=== PATIENT | female | born 1990 | race Caucasian/White ===

== ENCOUNTER 2021-02-21 02:07 | Inpatient (IN) | payer OTHER, SELFPAY ==
[2021-02-21] VITALS (99 sets, daily range): BP systolic 36–141; BP diastolic 19–94; PULSE 51–172; RESP 16–20; TEMP 36.6–37.1; O2SAT 95–99; BMI 49.0
[2021-02-21 03:09] LABS: Basophils Percent Auto 0.3 % (0.2-1.2); Eosinophils Absolute Auto 0.1 K/mm3 (0-0.3); Eosinophils Percent Auto 0.9 % (0-4.4); Hematocrit 34.5 % (37.0-47.0); Immature Granulocyte Absolute 0.06 K/mm3 (0.00-0.031); Immature Granulocyte Percent A 0.5 % (0-0.5); Lymphocytes Absolute Auto 2.62 K/mm3 (0.9-3.2); Lymphocytes Percent Auto 21.5 % (18.3-44.2); Mean Corpuscular HGB Conc 31.9 g/dl (32-36); Mean Corpuscular Hemoglobin 27.5 pg (26-34); Mean Corpuscular Volume 86.3 fl (80-100); Mean Platelet Volume 11.7 fl (7.4-10.4); Monocytes Absolute Auto 0.8 K/mm3 (0.1-0.6); Monocytes Percent Auto 6.9 % (2.6-8.5); Neutrophils Absolute Auto 8.5 K/mm3 (1.3-6.7); Neutrophils Percent Auto 69.9 % (45.5-73.1); Platelet Count Result 254 k/mm3 (150-375); Red Cell Distribution Width 15.2 % (11.5-14.5); White Blood Count 12.2 K/mm3 (4.5-10.0)
--- NOTE | 2021-02-21 03:13 | LDADM ---
Addendum entered by Sherri Ortega RN 02/21/21 04:27: This charting done by Sherri Ortega RN- 02/21/2021 [id number] Original Note: This patient, Irish Gates, was admitted to Labor/Delivery/Recovery 107 on 02/21/21 at 02:07. Plans for labor, pain management and were discussed with patient. Patient/family oriented to hospital policies and general routines including ID bracelet, bed and alarms, visiting hours, pain management, procedures, bathroom and other care routines, personal items, smoking policy, room service/diet and guest tray routines, infant security routines, and visiting hours. Patient/Family are encouraged to report perceived risks to care and to ask questions if they do not understand what they are told or what they should do. See OBIX for further documentation.
[2021-02-21] MEDS: LACTATED RINGERS 1,000 ML 125 ML IV CONT ×2 (03:54→04:53)
--- NOTE | 2021-02-21 04:23 | WPDANESEPP ---
Anes - Eval Pre Procedure Procedure: Labor epidural Date/Time: 02/21/21 04:23 Surgeon: lianet Preop Diagnosis: abd pain with contractions Pre Op Diagnosis: SROM, Contractions Patient Data Age: 30 Gender: F Height: 5 ft 3 in Weight: 125.5 kg Last Vital Signs Pulse 68 02/21/21 04:15 BP 92/56 L 02/21/21 04:15 Allergies Allergy/AdvReac Type Severity Reaction Status Date / Time No Known Allergies Allergy Verified 02/21/21 03:43 Home Medications Medication Instructions Recorded Confirmed Type buspirone 15 mg PO TID 02/21/21 02/21/21 History citalopram 20 mg PO ONCE 02/21/21 02/21/21 History Laboratory Tests 02/21/21 02/21/21 02/21/21 03:01 03:01 03:01 WBC 12.2 K/mm3 H K/mm3 (4.5-10.0) RBC 4.00 M/mm3 L M/mm3 (4.2-5.4) Hgb 11.0 g/dL L g/dL (12.0-15.0) Hct 34.5 % L % (37.0-47.0) MCV 86.3 fl fl (80-100) MCH 27.5 pg pg (26-34) MCHC 31.9 g/dl L g/dl (32-36) RDW 15.2 % H % (11.5-14.5) Plt Count 254 k/mm3 k/mm3 (150-375) MPV 11.7 fl H fl (7.4-10.4) Immature Gran % (Auto) 0.5 % % (0-0.5) Neut % (Auto) 69.9 % % (45.5-73.1) Lymph % (Auto) 21.5 % % (18.3-44.2) [place] % (Auto) 6.9 % % (2.6-8.5) Eos % (Auto) 0.9 % % (0-4.4) Baso % (Auto) 0.3 % % (0.2-1.2) Lymph # (Auto) 2.62 K/mm3 K/mm3 (0.9-3.2) [place] # (Auto) 0.8 K/mm3 H K/mm3 (0.1-0.6) Eos # (Auto) 0.1 K/mm3 K/mm3 (0-0.3) Baso # (Auto) 0.0 K/mm3 K/mm3 (0.0-0.1) Abs Immat Gran (auto) 0.06 K/mm3 H K/mm3 (0.00-0.031) Absolute Neuts (auto) 8.5 K/mm3 H K/mm3 (1.3-6.7) Absolute Nucleated RBC 0.0 K/mm3 K/mm3 (0.0-0.012) Nucleated RBC % 0.0 % % (0.0-0.2) RPR Pending Blood Type O Positive Antibody Screen Negative Patient hx anesthesia problems: none Family hx anesthesia problems: none PMFSH Past Medical History Medical History Hx of mixed drug abuse Morbid obesity and not yet delivered Smoker Family History Family History Father Diabetes mellitus Alcohol abuse Mother Diabetes mellitus Social History Social History Smoking packs per day: 0.5 Smoking cigarettes per day: 10.0 Years smoked: 16 Smoking pack-years: 8.00 Smoking status: Current every day smoker Tobacco type: cigarettes Second hand tobacco smoke exposure: Yes Substance use: former Other substance usage details: Heroin last use 2016 Gender identity (if verbalized by the patient): Female Sexual Orientation (if Verbalized by the Patient): Straight or Heterosexual Spiritual care concerns: No Exam Day of Procedure 02/21/21 04:23 Patient weight: super morbidly obese Airway: Mallampati scale class II Neurological: alert and oriented
--- NOTE | 2021-02-21 04:28 | PC.NURSE ---
All admission charting done by Sherri Ortega RN.
--- NOTE | 2021-02-21 07:14 | PC.NURSE ---
All entries made under Missael PATTERSON were actually made by Danny PATTERSON.
[2021-02-21] MEDS: OXYTOCIN 30 UNITS/NS 500 ML 30 UNITS/500 ML BAG IV CONT (07:46)
[2021-02-21 07:48] LABS: Barbiturate Screen Urine Negative (Negative); Benzodiazepines Screen Urine Negative (Negative)
[2021-02-21 07:58] LABS: Cannabinoid Screen Urine Negative (Negative); Cocaine Screen Urine Negative (Negative); Methadone Screen Urine Negative (Negative); Opiate Screen Urine Negative (Negative); Phencyclidine Screen Urine Negative (Negative)
[2021-02-21] MEDS: ONDANSETRON INJ 4 MG/2 ML VIAL IV PUSH (11:39)
--- NOTE | 2021-02-21 12:01 | PM.OBPRVD ---
OB - Delivery Note Procedure Procedure: Patient pushed for a spontaneous vaginal delivery. The fetus was delivered atraumatically and placed on the maternal abdomen. The cord was clamped and cut after 1 minute of life. The cord was double clamped and cut and a segment of cord was collected for cord gases. Cord blood was collected for blood type and Coomb's testing. The placenta delivered spontaneously and was noted to be intact. The perineum was inspected and there were no lacerations noted. There was a small right labial laceration that was hemostatic. The uterus was firm and good hemostasis was noted. The patient and fetus were stable in the delivery room. Intrapartal events: None Induction method: none Delivery augmentation: pitocin Delivery monitor: external FHT Route of delivery: Episiotomy description: None Laceration Description: Labial (right) Specimen: No Quantitative Blood Loss (ml): 250 Anesthesia type: Epidural Disposition: floor () Complications: No immediate complications Baby Date of : 02/[birth year] Time of : 11:55 Weeks of gestation at delivery: 37 gender: Female Weight (pounds): 6 Weight (ounces): 8 presentation: vertex position: Right Occiput Anterior Placenta delivery description: Spontaneous cord vessel description: 3 Vessels score one minute: 7 score five minutes: 9
--- NOTE | 2021-02-21 12:03 | PM.IMHP ---
H&P: HPI History of Present Illness Date/Time: 02/21/21 12:03 30 yo at 37w6d who presents after SROM in the middle of the night. She reports feeling regular contractions. She endorses good movement and denies any vaginal bleeding. Her was uncomplicated thus far. Chief Complaint: spontaneous rupture of membranes Review of Systems Cardiovascular: Cardiovascular: Denies chest pain, Denies leg edema, Denies palpitations, Denies dyspnea and Denies dyspnea on exertion Respiratory: Respiratory: Denies cough, Denies dyspnea and Denies dyspnea on exertion Gastrointestinal: Gastrointestinal: Denies abdominal pain, Denies constipation, Denies diarrhea, Denies nausea and Denies vomiting Genitourinary: Genitourinary: Denies hematuria, Denies urinary frequency, Denies dysuria, Denies pelvic pain, Denies urinary incontinence and Denies vaginal discharge Neurologic: Reports system reviewed and no additional complaints, except as documented Psychiatric: Psychiatric: Reports no additional psychiatric complaints Endocrine: Endocrine: Denies palpitations PMFSH Past Medical History Medical History Hx of mixed drug abuse Morbid obesity and not yet delivered Smoker Family History Family History Father Diabetes mellitus Alcohol abuse Mother Diabetes mellitus Social History Social History Smoking packs per day: 0.5 Smoking cigarettes per day: 10.0 Years smoked: 16 Smoking pack-years: 8.00 Smoking status: Current every day smoker Tobacco type: cigarettes Second hand tobacco smoke exposure: Yes Substance use: former Other substance usage details: Heroin last use 2016 Gender identity (if verbalized by the patient): Female Sexual Orientation (if Verbalized by the Patient): Straight or Heterosexual Spiritual care concerns: No Meds Home Medications and Allergies Home Medications Medication Instructions Recorded Confirmed Type buspirone 15 mg PO TID 02/21/21 02/21/21 History citalopram 20 mg PO ONCE 02/21/21 02/21/21 History Allergies Allergy/AdvReac Type Severity Reaction Status Date / Time No Known Allergies Allergy Verified 02/21/21 03:43 Vital Signs Vital Signs - 24 hr 02/21/21 03:00 02/21/21 03:15 02/21/21 03:30 Temperature Pulse Rate 65 63 72 Respiratory Rate Blood Pressure 98/50 L 110/65 96/69 L Pulse Oximetry 02/21/21 03:45 02/21/21 04:00 02/21/21 04:15 Temperature Pulse Rate 62 63 68 Respiratory Rate Blood Pressure 103/64 95/60 L 92/56 L Pulse Oximetry 02/21/21 04:24 02/21/21 04:29 02/21/21 04:30 Temperature Pulse Rate 76 Respiratory Rate Blood Pressure 82/70 L Pulse Oximetry 96 98 02/21/21 04:32 02/21/21 04:34 02/21/21 04:37 Temperature Pulse Rate 74 116 H Respiratory Rate Blood Pressure 141/88 H 126/74 Pulse Oximetry 98 02/21/21 04:39 02/21/21 04:44 02/21/21 04:45 Temperature Pulse Rate 78 76 Respiratory Rate Blood Pressure 116/70 131/79 Pulse Oximetry 97 99 02/21/21 04:46 02/21/21 04:48 02/21/21 04:49 Temperature Pulse Rate 66 58 L Respiratory Rate Blood Pressure 119/78 115/83 Pulse Oximetry 97 02/21/21 04:51 02/21/21 04:54 02/21/21 04:55 Temperature Pulse Rate 70 76 Respiratory Rate Blood Pressure 121/78 133/77 Pulse Oximetry 99 02/21/21 04:59 02/21/21 05:00 02/21/21 05:04 Temperature Pulse Rate 73 Respiratory Rate Blood Pressure 129/71 Pulse Oximetry 98 99 02/21/21 05:05 02/21/21 05:08 02/21/21 05:09 Temperature 36.8 C Pulse Rate 69 Respiratory Rate 20 Blood Pressure 126/72 Pulse Oximetry 98 02/21/21 05:10 02/21/21 05:14 02/21/21 05:15 Temperature Pulse Rate 61 54 L Respiratory Rate Blood Pressure 129/80 124/77 Pulse Oximetry 96 02/21/21 05:19 02/21/21 05:20 0
[2021-02-21] MEDS: OXYTOCIN 30 UNITS/NS 500 ML 30 UNITS/500 ML BAG 125 UNITS IV CONT (12:26)
[2021-02-21] MEDS: IBUPROFEN 600 MG TABLET PO ×2 (12:41→23:12)
[2021-02-21 13:55] LABS: Rapid Plasma Reagin Non-Reactive (NonReactive)
[2021-02-21] MEDS: WITCH HAZEL 40 PADS 1 PAD TOPICAL (14:39)
[2021-02-21] MEDS: BENZOCAINE 20% AER SPR (*SP) 56 GM CAN 1 SPRAY TOPICAL (14:39)
[2021-02-21] MEDS: ACETAMINOPHEN 325 MG TABLET 650 MG PO (20:26)
[2021-02-22] VITALS: BP 115/64; PULSE 79; RESP 16; TEMP 36.6; O2SAT 100
[2021-02-22 04:00] VITALS: BP 105/60; PULSE 72; RESP 16; TEMP 36.8; O2SAT 98
[2021-02-22] MEDS: ACETAMINOPHEN 325 MG TABLET 650 MG PO (04:10)
[2021-02-22 04:48] LABS: Hematocrit 31.9 % (37.0-47.0)
--- NOTE | 2021-02-22 07:49 | WPDANLDPN2 ---
Anes-Prog Note L&D Date/Time: 02/22/21 07:49 Comfortable throughout: labor and delivery Neuraxial method: epidural Epidural/Spinal procedure site: clean & non-tender Neuro status: Neuro function grossly intact. Cardiovascular status: normal Respiratory status: normal Airway patency: baseline Mental status: baseline Post-Op hydration status: normal Vital Signs: Last Vital Signs Temp 36.8 C 02/22/21 04:00 Pulse 72 02/22/21 04:00 Resp 16 02/22/21 04:00 BP 105/60 02/22/21 04:00 Pulse Ox 98 02/22/21 04:00 Pain score (VAS): 0 I/O: Intake & Output 02/21/21 02/21/21 02/22/21 15:59 23:59 07:59 Output Total 70 Balance -70 Post-procedural complaints: none Patient feedback: Patient satisfied with anesthetic care.
--- NOTE | 2021-02-22 08:50 | PM.OBDSVD ---
DS: Admitting Diagnosis Admitting Diagnosis Admitting Diagnosis: spontaneous rupture of membranes at term OB - DS: Summary OB Procedures : None OB Procedures Intrapartum: Spontaneous Vag Delivery OB Procedures: : None Status at Discharge Functional status at discharge: independent ambulation Overall status at discharge: patient is back to baseline Time Spent with Patient Time attestation: Total time spent providing and/or coordinating discharge services: Time spent: Less than 30 minutes Exam Const: General: comfortable and no acute distress Resp: Effort & Inspection: normal respiratory effort Auscultation: clear to auscultation bilaterally Cardio: Rate: regular rate GI: GI Palp: Yes Soft to palpation Auscultation: normal bowel sounds Other: Fundus firm below umbilicus Psych: Appearance: grossly normal Mental Status: mental status grossly normal Affect: normal affect DS: Data Data Completed and Pending Pending studies at discharge: Pending at discharge 02/21/21 11:58 Surgical [PTH] Routine Labs on day of discharge: Labs from last 24 hours 02/22/21 02/21/21 04:17 03:01 Hgb 10.0 L Hct 31.9 L RPR Non-reactive Discharge Plan Discharge Discharging Clinician: Blaine Marte Patient Disposition: Home, Self-Care Activity: as tolerated and pelvic rest Diet: regular Patient Instructions: Antibiotic Form, How to Stop Smoking (DC), Vaginal Delivery (DC) Stand Alone Forms: General Discharge Information Follow-up/Referrals: Blaine Marte MD [Physician] - 4 Weeks Discharge Medications: New ibuprofen 600 mg Tablet 600 mg PO Q6H PRN (Reason: Cramping) Qty: 30 RF: 0 polysaccharide iron complex 150 mg iron Capsule 150 mg PO BIDWM Qty: 60 RF: 0 acetaminophen [Mapap (acetaminophen)] 325 mg Tablet 650 mg PO Q6H PRN (Reason: Mild Pain (1-3) Or Headache) Qty: 30 RF: 0 Continued citalopram 20 mg tablet 20 mg PO ONCE RF: 0 buspirone 15 mg tablet 15 mg PO TID RF: 0 Date of admission: 02/21/21 02:07 Primary Care Provider: PHYSICIAN,PUBLIC POLICY ASSOCIATE Admitting Provider: Blaine Marte Attending physician on admission: Blaine Marte Condition: Stable
[2021-02-22] MEDS: IBUPROFEN 600 MG TABLET PO (09:04)
[2021-02-22] MEDS: CITALOPRAM HYDROBROMIDE 20 MG TABLET PO (09:04)
[2021-02-22] MEDS: DOCUSATE SODIUM 100 MG CAPSULE PO (09:04)
[2021-02-22 09:05] VITALS: BP 105/58; PULSE 90; RESP 20; TEMP 36.3; O2SAT 96
[2021-02-22] MEDS: busPIRone HCL 5 MG TABLET 15 MG PO (09:05)
[2021-02-23 10:18] VITALS: BP 99/60; PULSE 74; RESP 16; TEMP 36.7; O2SAT 97
== END 2021-02-22 15:43 | disposition home or self-care (01) | DRG 560 ==
LOC: ANHLDR 04:39 → ANHOB2 15:20
PROVIDERS: Admitting Provider Obstetrics & Gynecology; Visit Provider Student in an Organized Health Care Education/Training Program
DX: O99.214 Obesity complicating childbirth (principal); Z37.0 Single live birth; Z3A.37 37 weeks gestation of pregnancy; E66.01 Morbid (severe) obesity due to excess calories; O70.0 First degree perineal laceration during delivery; O99.334 Smoking (tobacco) complicating childbirth; F17.210 Nicotine dependence, cigarettes, uncomplicated; O99.344 Other mental disorders complicating childbirth; F41.9 Anxiety disorder, unspecified
CPT/HCPCS: 36415; 80307; 84112; 85014; 85018; 85025; 86592; 86850; 86900; 86901; 88307; A9270; J2405; J2590; J2795; J7120